=== PATIENT | male | born 1995 | race Caucasian/White ===

== ENCOUNTER → 2020-03-18 | Outpatient (CLI) | payer OTHER ==
--- NOTE | 2020-03-24 01:51 | SLEEP ---
[address] [address] SLEEP STUDY REPORT Name: MARICRUZ MATTA Room: [facility]#: [id number] Admission: 03/18/20 Attend Phys: Rico Zapata MD Discharge: Date of : 89 Report #: [id number] THIS REPORT FOR: //name// CC: Rico PEREZ This study has been reviewed in its entirety by a board certified sleep specialist DATE OF SERVICE: 03/18/2020 INDICATION FOR SLEEP STUDY: Daytime sleepiness and history of parasomnias. The patient is reported to have had a previous sleep study, which is reported to be inconclusive. I do not have details available. INTERPRETATION: Total duration of the study is 444 minutes out of which he was asleep for 333 minutes with an overall sleep efficiency of 75%. Sleep onset occurred around 13 minutes after lying down in bed. REM onset was delayed to 48 minutes after sleep onset. N1 sleep duration was 4%, N2 duration was 49%, N3 duration was 25%, and REM duration was 23%. We recorded occasional sleep related respiratory events. These included 3 apneas in addition to 1 hypopnea and 33 respiratory effort related arousals. There was snoring observed during the sleep study, which ranged from mild to loud. The patient's overall apnea-hypopnea index is normal at 0.7 with a respiratory disturbance index only mildly elevated to 6.7. Body position data indicates the patient was asleep in the supine position for 87 minutes. Rest of the time he was in other positions. Mean heart rate was 69. Periodic limb movement index is normal at 1.4. Arousal index is mildly elevated to 25. O2 saturation is maintained at or above 88% throughout the sleep study. IMPRESSION: There is some evidence of increased upper airway resistance. The patient did have significant snoring during the sleep study; however, the apnea-hypopnea index is normal at 0.7 and O2 saturation is also adequately maintained. Sleep apnea was not detected during the sleep study. Also, no parasomnias were detected during the sleep study either. RECOMMENDATIONS: Recommend clinical correlation regarding further evaluation of the patient's sleep complaints. Recommend avoiding driving or other activities, requiring vigilance if drowsy. This entire sleep study was reviewed by board certified sleep physician. <ELECTRONICALLY SIGNED> By: Celso Wood MD 03/24/20 [id number] Wood MD /nt
== END ==
LOC: M.SLEEPLAB 19:59
PROVIDERS: ATTEND Orthopaedic Surgery
DX: G47.30 Sleep apnea, unspecified (principal)